=== PATIENT | male | born 1995 | race Caucasian/White ===

== ENCOUNTER 2021-07-05 20:33 | Emergency (ER) | payer OTHER ==
[~2021-07-05] VITALS: Ht 177.8 cm; Wt 84.1 kg
[2021-07-05 20:34] VITALS: BP 134/82
[2021-07-06] MEDS ORDERED: LIDOCAINE 1% MDV 20ML VIAL SC ONE (00:25)
[2021-07-06] MEDS ORDERED: NEOSPORIN OINT 0.9 GM PKT TOP ONE (01:00)
[2021-07-06] MEDS ORDERED: PERI12LIQ PO (01:05)
[2021-07-06] MEDS ORDERED: BACI500O21 TOP (01:05)
== END 2021-07-06 01:10 | disposition home or self-care (01) ==
LOC: M ED 20:33
DX: S01.81XA Laceration without foreign body of other part of head, initial encounter (principal); S01.512A Laceration without foreign body of oral cavity, initial encounter; W26.0XXA Contact with knife, initial encounter; Y92.009 Unspecified place in unspecified non-institutional (private) residence as the place of occurrence of the external cause; Y93.89 Activity, other specified; Y99.9 Unspecified external cause status